=== PATIENT | female | born 1990 | race Caucasian/White ===

== ENCOUNTER 2017-10-04 00:26 | Emergency (ER) | payer SELFPAY ==
--- NOTE | 2017-10-04 03:07 | EDM.PDOC ---
ED HPI GENERAL MEDICAL PROBLEM - General Chief Complaint: Drug or Alcohol Abuse Stated Complaint: FEVER Time Seen by Provider: 10/04/17 00:48 Source of Information: Reports: Patient, Other (Father's girlfriend) History Limitations: Reports: No Limitations - History of Present Illness INITIAL COMMENTS - FREE TEXT/NARRATIVE: The patient states that she has been injecting heroin since 16 years of age, and methamphetamine since 18 years of age. She also smokes marijuana daily. She ordinarily injects approximately half a gram of heroin per day, however, moved to this area around mid-July 2017, in order to try to stop using heroin, and has not used any since. She injects methamphetamine sporadically, but uses more of it whenever she decreases her heroin use. She has been injecting approximately 1/4 g of methamphetamine per day since mid July. Her last methamphetamine use was this morning. The patient states that ever since she stopped using heroin, she has been experiencing headaches, body aches, leg pain, nausea, and vomiting. This got worse, in particular, her lower extremity pain, today, which brings her to the ED. She denies having had a fever. The patient states that she was diagnosed with a spinal abscess and right knee abscess about 6 months ago, while living in [place], [place]. She was admitted to a hospital in [place], where she received a right upper extremity PICC line and IV antibiotics for approximately 2 months. The spinal and right knee abscesses were drained. She states that she was not diagnosed with endocarditis. She acknowledges that her presenting symptoms at that time included a fever. The patient has never been to inpatient drug treatment, nor has she ever gone to outpatient drug treatment. The patient does not of the PCP. Generalized Pain Score (Numeric/FACES): 10 - Related Data Allergies Allergy/AdvReac Type Severity Reaction Status Date / Time latex Allergy Itching Verified 10/04/17 00:35 Home Meds: Home Meds . [No Known Home Meds] 10/04/17 [History] Past Medical History Psychiatric History: Reports: Addiction (Heroin, methamphetamine) - Past Surgical History Musculoskeletal Surgical History: Reports: Other (See Below) (Spinal abscess, right knee abscess drained) Social & Family History - Tobacco Use Smoking Status *Q: Current Every Day Smoker Years of Tobacco use: 11 Packs/Tins Daily: 0.5 Packs/Tins Daily Comment: Down from 1 ppd - Caffeine Use Caffeine Use: Reports: None - Alcohol Use Alcohol Use History: No - Recreational Drug Use Recreational Drug Use: Yes Drug Use in Last 12 Months: Yes Recreational Drug Type: Reports: Heroin (Injects), Marijuana/Hashish (Smokes), Methamphetamine (Injects) - Living Situation & Occupation Living situation: Reports: Single, with Family (Father, his girlfriend) Occupation: Unemployed ED ROS GENERAL - Review of Systems Review Of Systems: ROS reveals no pertinent complaints other than HPI. ED EXAM, GENERAL - Physical Exam Exam: See Below Exam Limited By: No Limitations General Appearance: Alert, WD/WN, Mild Distress Eye Exam: Bilateral Eye: Normal Inspection Ears: Normal External Exam, Hearing Grossly Normal Nose: Normal Inspection, No Blood Throat/Mouth: Normal Inspection, Normal Lips, Normal Voice, No Airway Compromise Head: Atraumatic, Normocephalic Neck: Normal Inspection, Full Range of Motion Respiratory/Chest: No Respiratory Distress, Lungs Clear, Normal Breath Sounds, No Accessory Muscle Use Cardiovascular: Normal Peripheral Pulses, Regular Rate, Rhythm, No Gallop, No JVD, No Murmur, No Rub GI/Abdominal: Normal Bowel Sounds, Soft, Non-Tender, No Organomegaly, No Distention, No Abnormal Bruit, No Mass (Female) Exam: Deferred Rectal (Female) Exam: Deferred Back Exam: Normal Inspection, Full Range of Motion, NT Extremities: Normal Inspection, Normal Range of Motion, No Pedal Edema, Normal Capillary Refill Neurological: Alert, Oriented, Normal Cognition, No Motor/Sensory Deficits Psychiatric: Normal Affect Skin Exam: Warm, Intact, Normal Color, No Rash, Diaphoretic Course - Vital Signs Last Recorded V/S: Last Vital Signs Temp 37.2 C 10/04/17 00:33 Pulse 102 H 10/04/17 00:33 Resp 18 10/04/17 00:33 BP 99/64 10/04/17 00:33 Pulse Ox 98 10/04/17 00:33 - Orders/Labs/Meds Orders: Active Orders 24 hr Category Date Time Status CULTURE BLOOD [BC] Stat Lab 10/04/17 01:49 Received CULTURE BLOOD [BC] Stat Lab 10/04/17 01:58 Received Blood Culture x2 Reflex Set [OM.PC] Stat Oth 10/04/17 01:32 Ordered Labs: Laboratory Tests 10/04/17 10/04/17 10/04/17 Range/Units 01:58 01:58 01:58 WBC 20.39 H (3.98-10.04) K/mm3 RBC 4.90 (3.98-5.22) M/mm3 Hgb 14.3 (11.2-15.7) gm/L Hct 42.1 (34.1-44.9) % MCV 85.9 (79.4-94.8) fl MCH 29.2 (25.6-32.2) pg MCHC 34.0 (32.2-35.5) g/dl RDW Std Deviation 43.0 (36.4-46.3) fL Plt Count 253 (182-369) K/mm3 MPV 9.8 (9.4-12.3) fl Neutrophils % (Manual) 85 H (40-60) % Band Neutrophils % 5 (0-10) % Lymphocytes % (Manual) 2 L (20-40) % Atypical Lymphs % 0 % Monocytes % (Manual) 5 (2-10) % Eosinophils % (Manual) 3 (0.7-5.8) % Basophils % (Manual) 0 L (0.1-1.2) Platelet Estimate Adequate RBC Morph Comment Normal Sodium 135 L (136-145) mEq/L Potassium 3.8 (3.5-5.1) mEq/L Chloride 99 (98-107) mEq/L Carbon Dioxide 22 (21-32) mEq/L Anion Gap 17.8 H (5-15) BUN 14 (7-18) mg/dL Creatinine 1.0 (0.55-1.02) mg/dL Est Cr Clr Drug Dosing 87.53 mL/min Estimated GFR (MDRD) > 60 (>60) mL/min BUN/Creatinine Ratio 14.0 (14-18) Glucose 115 H (74-106) mg/dL Lactic Acid 2.0 (0.4-2.0) mmol/L Calcium 9.4 (8.5-10.1) mg/dL Magnesium 1.3 L (1.8-2.4) mg/dl Total Bilirubin 0.7 (0.2-1.0) mg/dL AST 32 (15-37) U/L ALT 33 (14-59) U/L Alkaline Phosphatase 80 (46-116) U/L C-Reactive Protein 5.8 H* (<1.0) mg/dL Total Protein 7.6 (6.4-8.2) g/dl Albumin 3.9 (3.4-5.0) g/dl Globulin 3.7 gm/dL Albumin/Globulin Ratio 1.1 (1-2) Urine Color (Yellow) Urine Appearance (Clear) Urine pH (5.0-8.0) Ur Specific [place] (1.005-1.030) Urine Protein (Negative) Urine Glucose (UA) (Negative) Urine Ketones (Negative) Urine Occult Blood (Negative) Urine Nitrite (Negative) Urine Bilirubin (Negative) Urine Urobilinogen (0.2-1.0) Ur Leukocyte Esterase (Negative) Urine RBC (0-5) /hpf Urine WBC (0-5) /hpf Ur Epithelial Cells (0-5) /hpf Urine Bacteria (FEW) /hpf Urine Mucus (FEW) /hpf Urine HCG, Qual (NEGATIVE) 10/04/17 10/04/17 Range/Units 05:29 05:29 WBC (3.98-10.04) K/mm3 RBC (3.98-5.22) M/mm3 Hgb (11.2-15.7) gm/L Hct (34.1-44.9) % MCV (79.4-94.8) fl MCH (25.6-32.2) pg MCHC (32.2-35.5) g/dl RDW Std Deviation (36.4-46.3) fL Plt Count (182-369) K/mm3 MPV (9.4-12.3) fl Neutrophils % (Manual) (40-60) % Band Neutrophils % (0-10) % Lymphocytes % (Manual) (20-40) % Atypical Lymphs % % Monocytes % (Manual) (2-10) % Eosinophils % (Manual) (0.7-5.8) % Basophils % (Manual) (0.1-1.2) Platelet Estimate RBC Morph Comment Sodium (136-145) mEq/L Potassium (3.5-5.1) mEq/L Chloride (98-107) mEq/L Carbon Dioxide (21-32) mEq/L Anion Gap (5-15) BUN (7-18) mg/dL Creatinine (0.55-1.02) mg/dL Est Cr Clr Drug Dosing mL/min Estimated GFR (MDRD) (>60) mL/min BUN/Creatinine Ratio (14-18) Glucose (74-106) mg/dL Lactic Acid (0.4-2.0) mmol/L Calcium (8.5-10.1) mg/dL Magnesium (1.8-2.4) mg/dl Total Bilirubin (0.2-1.0) mg/dL AST (15-37) U/L ALT (14-59) U/L Alkaline Phosphatase (46-116) U/L C-Reactive Protein (<1.0) mg/dL Total Protein (6.4-8.2) g/dl Albumin (3.4-5.0) g/dl Globulin gm/dL Albumin/Globulin Ratio (1-2) Urine Color Yellow (Yellow) Urine Appearance Clear (Clear) Urine pH 6.0 (5.0-8.0) Ur Specific [place] 1.010 (1.005-1.030) Urine Protein Negative (Negative) Urine Glucose (UA) Negative (Negative) Urine Ketones Negative (Negative) Urine Occult Blood Negative (Negative) Urine Nitrite Negative (Negative) Urine Bilirubin Negative (Negative) Urine Urobilinogen 0.2 (0.2-1.0) Ur Leukocyte Esterase Negative (Negative) Urine RBC Not seen (0-5) /hpf Urine WBC 0-5 (0-5) /hpf Ur Epithelial Cells 0-5 (0-5) /hpf Urine Bacteria Few (FEW) /hpf Urine Mucus Not seen (FEW) /hpf Urine HCG, Qual Negative (NEGATIVE) Meds: Medications Discontinued Medications Generic Name Dose Route Start Last Admin Trade Name Freq PRN Reason Stop Dose Admin Magnesium Sulfate 2 gm/ Premix 50 mls @ 50 mls/hr 10/04/17 03:05 10/04/17 03: 26 IV 10/04/17 04:04 50 mls/hr ONETIME ONE Administration - Re-Assessments/Exams Free Text/Narrative Re-Assessment/Exam: 10/04/17 03:06 The patient's magnesium has returned low at 1.3. I have ordered a 2 g magnesium rider. The patient's CRP is elevated at 5.8, however, the CBC results are not yet back. 10/04/17 03:44 The patient's WBC count has returned as substantially elevated at 20.39 with 5% bandemia. Although she does not have a history of a fever, these lab results are concerning for a new or ongoing bacterial infection, including infective endocarditis. As there are no acute symptoms, immediate treatment is not required, however, I am recommending transfer to [place], where she could be seen by infectious disease, receive a transesophageal echocardiogram if they felt indicated, as well as referral to inpatient drug treatment. The patient is agreeable to transfer. 10/04/17 05:09 Case discussed with [facility] at 04:52. Case then discussed with Dr. Coe, ED Physician at [facility], at 04 :57. He did not see why the patient could not be directly admitted. Case then discussed with Dr. Stapleton, Hospitalist at [facility], at 05 :04. He would like me to order a urinalysis. He accepts the patient for direct admission to their medical floor. Departure - Departure Time of Disposition: 05:10 Disposition: DC/Tfer to Acute Hospital 02 Condition: Fair Clinical Impression: Polysubstance abuse, Neutrophilic leukocytosis, Hypomagnesemia - Discharge Information - My Orders Last 24 Hours: My Active Orders 10/04/17 01:32 Blood Culture x2 Reflex Set [OM.PC] Stat 10/04/17 01:49 CULTURE BLOOD [BC] Stat 10/04/17 01:58 CULTURE BLOOD [BC] Stat - Assessment/Plan Last 24 Hours: My Active Orders 10/04/17 01:32 Blood Culture x2 Reflex Set [OM.PC] Stat 10/04/17 01:49 CULTURE BLOOD [BC] Stat 10/04/17 01:58 CULTURE BLOOD [BC] Stat
[2017-10-04] MEDS: Magnesium Sulfate/Water 2 GM in Premix Bag 1 BAG IV ONE (03:26)
== END 2017-10-04 06:25 ==
LOC: JD.ED 00:26
DX: E83.42 Hypomagnesemia (principal); D72.829 Elevated white blood cell count, unspecified; F19.10 Other psychoactive substance abuse, uncomplicated; F17.210 Nicotine dependence, cigarettes, uncomplicated; Z91.040 Latex allergy status
CPT/HCPCS: 36415; 80053; 81001; 81025; 83605; 83735; 85025; 86140; 87040; 96365; 99285-25; J3475